=== PATIENT | female | born 1995 | race Caucasian/White ===

== ENCOUNTER 2018-03-18 12:44 | Emergency (ER) | payer MEDICAID, OTHER ==
[~2018-03-18] VITALS: Ht 154.9 cm; Wt 83.5 kg
--- OUTSIDE RECORDS SUMMARY | 2018-03-18 13:17 | XMS REPORT ---
Author Author Tran Mccarthy Organization [facility] Address [address] [place], [place] [id number] Care Team Providers Care Sawmill Equipment Operator Name Role Phone Tran Mccarthy PCP Unavailable Allergies and Adverse Reactions Name Reaction Notes PENICILLINS rash Plan of Treatment Not available. Medications Active Name Start Date Estimated Completion Date SIG Comments naproxen 500 mg oral tablet 06/28/2017 take 1 tablet (500 mg) by oral route 2 times per day with food for 30 days cyclobenzaprine 10 mg oral tablet 06/28/2017 take 1 tablet by oral route once a day (at bedtime) for 7 days Discontinued Name Start Date Discontinued Date SIG Comments diclofenac sodium 75 mg oral tablet,delayed release (DR/EC) 06/25/20172016 take 1 tablet (75 mg) by oral route 2 times per day for 10 days Problem List Not available. Vital Signs Date Time BP-Sys(mm[Hg] BP-Kathleen(mm[Hg]) HR(bpm) RR(rpm) Temp WT HT HC BMI BSA BMI Percentile O2 Sat(%) 07/02/2017 1:02:00 PM 115 mmHg 71 mmHg 90 bpm 16 rpm 99.6 F 166 lbs 61 in 31.37 kg/m2 1.80 m2 100 % 06/28/2017 2:25:00 PM 121 mmHg 70 mmHg 87 bpm 18 rpm 98.6 F 164.125 lbs 61 in 31.0108 kg/m 1.79 m 100 % 06/25/2017 1:49:00 PM 116 mmHg 80 mmHg 78 bpm 18 rpm 98.7 F 168 lbs 61 in 31.74 kg/m2 1.81 m2 100 % Social History Name Description Comments Tobacco Never smoker Alcohol Never History of Procedures Date Ordered Description Order Status 06/28/2017 12:00 AM Toradol 60 Mg Injection Reviewed 06/25/2017 12:00 AM RADEX HAND MINIMUM 3 VIEWS Reviewed 06/25/2017 12:[address] HEAD/BRAIN W/O DYE Reviewed Results Summary Not available. History Of Immunizations Not available. History of Past Illness Name Date of Onset Comments Headache Jun 25 2017 1:53PM Head trauma, initial encounter Jun 25 2017 1:53PM Hand injury, right, initial encounter Jun 25 2017 1:53PM Pain in right hand Jun 25 2017 1:53PM Intractable acute post-traumatic headache Jun 28 2017 2:27PM Payers Insurance Name Company Name Plan Name Plan Number Policy Number Policy Group Number Start Date [facility] [id number] N/A History of Encounters Visit Date Visit Type Provider 07/02/2017 Office visit Tran Mccarthy APRN 06/28/2017 Office visit Sherrill Her GROUNDS RESTORATION SPECIALIST 06/25/2017 Office visit Tran Mccarthy GROUNDS RESTORATION SPECIALIST
--- OUTSIDE RECORDS SUMMARY | 2018-03-18 13:17 | XMS REPORT ---
Author Author Basim Starks [facility] Address [address] [place], [place] [phone] Care Team Providers Care Lifestyle Consultant Name Role Phone Basim Starks PCP Allergies and Adverse Reactions Name Reaction Notes PENICILLINS rash Plan of Treatment Planned Activity Comments Planned Date Planned Time Plan/Goal Chlamydia 12/28/2017 12:00 AM Medications Active Name Start Date Estimated Completion Date SIG Comments Vitamin oral Discontinued Name Start Date Discontinued Date SIG Comments diclofenac sodium 75 mg oral tablet,delayed release (DR/EC) 06/25/20172016 take 1 tablet (75 mg) by oral route 2 times per day for 10 days naproxen 500 mg oral tablet 06/28/2017 12/28/2017 take 1 tablet (500 mg) by oral route 2 times per day with food for 30 days cyclobenzaprine 10 mg oral tablet 06/28/2017 12/28/2017 take 1 tablet by oral route once a day (at bedtime) for 7 days Problem List Not available. Vital Signs Date Time BP-Sys(mm[Hg] BP-Kathleen(mm[Hg]) HR(bpm) RR(rpm) Temp WT HT HC BMI BSA BMI Percentile O2 Sat(%) 12/28/2017 4:07:00 PM 125 mmHg 65 mmHg 60 bpm 99.6 F 185 lbs 61 in 34.96 kg/m2 1.90 m2 07/28/2017 9:40:00 AM 116 mmHg 80 mmHg 78 bpm 14 rpm 97.9 F 169.5 lbs 61 in 32.0264 kg/m 1.8191 m 100 % 07/02/2017 1:02:00 PM 115 mmHg 71 mmHg [...] 12:[address] HEAD/BRAIN W/O DYE Reviewed 12/28/2017 4:47 PM URINE TEST Reviewed 12/28/2017 12:00 AM CYTOPATH C/V THIN LAYER Returned 12/28/2017 12:00 AM N.GONORRHOEAE DNA AMP PROB Returned 12/28/2017 12:00 AM HIV-1ANTIBODY Returned 12/28/2017 12:00 AM URINALYSIS AUTO W/SCOPE Returned 12/28/2017 12:00 AM OBSTETRIC PANEL Returned 12/28/2017 12:00 AM ASSAY OF FERRITIN Returned 12/28/2017 12:00 AM URINE DRUG SCREEN RAPID Returned 12/28/2017 12:00 AM GLUCOSE TEST Returned 12/28/2017 12:00 AM DETECT AGENT NOS DNA AMP Returned 12/28/2017 12:00 AM TRICHOMONAS VAGINALIS AMPLIF Returned 12/28/2017 12:00 AM HEPATITIS C AB TEST Returned 01/04/2018 4:09 PM US PREG UTERUS REAL TIME W/IMAGE DCMTN TRANSVAG Reviewed Results Summary Date and Description Results 12/28/2017 4:47 PM Test, Urine positive History Of Immunizations Not available. History of Past Illness Name Date of Onset Comments Anxiety Headache Jun 25 2017 1:53PM Head trauma, initial encounter Jun 25 2017 1:53PM Hand injury, right, initial encounter Jun 25 2017 1:53PM Pain in right hand Jun 25 2017 1:53PM Intractable acute post-traumatic headache Jun 28 2017 2:27PM Intractable acute post-traumatic headache Jul 02 2017 1:07PM Concussion Jul 02 2017 1:07PM Unspecified injury of right wrist, hand and finger(s), subsequent encounter Jul 02 2017 1:07PM Encounter for occupational health examination Jul 28 2017 9:42AM test confirmed positive Dec 28 2017 4:14PM Obesity Dec 28 2017 4:14PM Payers Insurance Name Company Name Plan Name Plan Number Policy Number Policy Group Number Start Date [facility] [id number] N/A [employer] [id number] N/A [facility] Occupational Medicine [id number] N/A History of Encounters Visit Date Visit Type Provider 01/04/2018 Office visit Basim Starks MD 12/28/2017 Office visit Teresa Cuellar DROP FORGER 07/28/2017 Office visit Sherrill Her APRN 07/02/2017 Office visit Tran Mccarthy APRN 06/28/2017 Office visit Sherrill Her APRN 06/25/2017 Office visit Tran Mccarthy DROP FORGER
--- OUTSIDE RECORDS SUMMARY | 2018-03-18 13:17 | XMS REPORT ---
Author Author Sherrill Her Organization [facility] Address [address] [place], [place] [phone] Care Team Providers Care Mold Maker Helper Name Role Phone Sherrill Her PCP Unavailable Allergies and Adverse Reactions Name [...] HC BMI BSA BMI Percentile O2 Sat(%) 06/28/2017 2:25:00 PM 121 mmHg 70 mmHg 87 bpm 18 rpm 98.6 F 164.125 lbs 61 in 31.01 kg/m2 1.79 m2 100 % 06/25/2017 1:49:00 PM 116 mmHg 80 mmHg 78 bpm 18 rpm 98.7 F 168 lbs 61 in 31.743 kg/m 1.811 m 100 % Social History Name Description Comments Tobacco Never smoker Alcohol Never History of Procedures Date Ordered Description Order Status 06/25/2017 12:00 AM RADEX HAND MINIMUM 3 VIEWS Reviewed 06/25/2017 12:[address] HEAD/BRAIN W/O DYE Reviewed 06/28/2017 12:00 AM Toradol 60 Mg Injection Reviewed Results Summary Not available. History Of [...] Policy Number Policy Group Number Start Date [employer] [place] [facility] [id number] N/A History of Encounters Visit Date Visit Type Provider 06/28/2017 Office visit Sherrill Her APRN 06/25/2017 Office visit Tran Mccarthy [employer]
--- OUTSIDE RECORDS SUMMARY | 2018-03-18 13:17 | XMS REPORT ---
Author Author Basim Starks [facility] Address [address] [place], [place] [phone] Care Team Providers Care Pigment Supplier Name Role Phone Basim Starks PCP Allergies [...] HC BMI BSA BMI Percentile O2 Sat(%) 02/10/2018 9:50:00 AM 128 mmHg 78 mmHg 90 bpm 98.6 F 186 lbs 61 in 35.144 kg/m 1.9056 m 12/28/2017 4:07:00 PM 125 mmHg 65 mmHg 60 bpm 99.6 F 185 lbs 61 in 34.96 kg/m2 1.90 m2 07/28/2017 9:40:00 AM 116 mmHg 80 mmHg 78 bpm 14 rpm 97.9 F 169.5 lbs 61 in 32.03 kg/m2 1.82 m2 100 % 07/02/2017 1:02:00 PM 115 mmHg 71 mmHg 90 bpm 16 rpm 99.6 F 166 lbs 61 in 31.3651 kg/m 1.8002 m 100 % 06/28/2017 2:25:00 PM 121 mmHg [...] 12/28/2017 12:00 AM CYTOPATH C/V THIN LAYER Reviewed 12/28/2017 12:00 AM SPECIMEN HANDLING OFFICE-LAB Reviewed 12/28/2017 12:00 AM N.GONORRHOEAE DNA AMP PROB Reviewed 12/28/2017 12:00 AM CHLAMYDIA CULTURE Reviewed 12/28/2017 12:00 AM HIV-1ANTIBODY Reviewed 12/28/2017 12:00 AM URINALYSIS AUTO W/SCOPE Reviewed 12/28/2017 12:00 AM OBSTETRIC PANEL Returned 12/28/2017 12:00 AM ASSAY OF FERRITIN Reviewed 12/28/2017 12:00 AM URINE DRUG SCREEN RAPID Reviewed 12/28/2017 12:00 AM GLUCOSE TEST Reviewed 12/28/2017 12:00 AM DETECT AGENT NOS DNA AMP Reviewed 12/28/2017 12:00 AM TRICHOMONAS VAGINALIS AMPLIF Reviewed 12/28/2017 12:00 AM HEPATITIS C AB TEST Reviewed 01/04/2018 12:00 AM US PREG UTERUS REAL TIME W/IMAGE DCMTN TRANSVAG Reviewed Results Summary Date and Description Results 12/28/2017 4:40 PM Pap Smear Collected 12/28/2017 4:47 PM Test, Urine positive 12/29/2017 2:20 PM COLOR YELLOW APPEARANCE CLEAR SPEC GRAV >=1.030 pH 5.5 PROTEIN NEGATIVE GLUCOSE 100 KETONE NEGATIVE BILIRUBIN NEGATIVE BLOOD NEGATIVE NITRITE NEGATIVE LEUK SCREEN NEGATIVE WBC/HPF 0-5 RBC/HPF NEGATIVE CASTS/LPF NEGATIVE /LPFCRYSTALS NEGATIVE MUCOUS THRDS 2++ BACTERIA 1+ EPITH CELLS 1+ SQUAMOUS /HPFTRICHOMONAS NEGATIVE YEAST NEGATIVE CULT ORDERED YES FERRITIN 11.0 ng/mLCannabinoids (THC) NEGATIVE ng/mLPhencyclidine (PCP) NEGATIVE ug/mLCocaine NEGATIVE Methamphetamine NEGATIVE ug/mLOpiates NEGATIVE ng/mLAmphetamine NEGATIVE Benzodiazepines NEGATIVE ng/mLTricyclic Antidepres NEGATIVE Methadone NEGATIVE ng/mLBarbiturates NEGATIVE ng/mLOxycodone NEGATIVE Propoxyphene (PPX) NEGATIVE ng/mLHEPATITIS C 0.07 HIV AG/AB COMBO 0.08 History Of Immunizations Not available. History of [...] 2017 4:14PM Obesity Dec 28 2017 4:14PM Encounter for care of first , first trimester Jan 04 2018 4 :09PM Encounter for examination following surgery Feb 10 2018 9:52AM Payers Insurance Name Company Name Plan Name Plan Number Policy Number Policy Group Number Start Date [facility] [id number] N/A [employer] [id number] N/A [facility] Med Occupational Medicine [id number] N/A [facility] [id number] N/A History of Encounters Visit Date Visit Type Provider 02/10/2018 Surgery Basim Starks MD 02/02/[address] Bridget Phillips MD 02/01/[address] Bridget Phillips MD 01/04/2018 Office visit Basim Starks MD 12/28/2017 Office visit Teresa Cuellar COMPLIANCE AUDITOR 07/28/2017 Office visit Sherrill Her COMPLIANCE AUDITOR 07/02/2017 Office visit Tran Mccarthy COMPLIANCE AUDITOR 06/28/2017 Office visit Sherrill Her COMPLIANCE AUDITOR 06/25/2017 Office visit Tran Mccarthy COMPLIANCE AUDITOR
--- OUTSIDE RECORDS SUMMARY | 2018-03-18 13:18 | XMS REPORT ---
Author Author Basim Starks [facility] Address [address] [place], [place] [id number] Care Team Providers Care Transportation Mechanic Name Role Phone Basim Starks PCP Allergies [...] W/SCOPE Reviewed 12/28/2017 12:00 AM OBSTETRIC PANEL Reviewed 12/28/2017 12:00 AM ASSAY OF FERRITIN Reviewed 12/28/2017 12:00 AM URINE DRUG SCREEN RAPID Reviewed 12/28/2017 12:00 AM GLUCOSE TEST Reviewed 12/28/2017 12:00 AM DETECT AGENT NOS DNA AMP Reviewed 12/28/2017 12:00 AM TRICHOMONAS VAGINALIS AMPLIF Reviewed 12/28/2017 12:00 AM HEPATITIS C AB TEST Reviewed 01/04/2018 12:00 AM US PREG UTERUS REAL TIME W/IMAGE DCMTN TRANSVAG Reviewed 02/15/2018 12:00 AM US EXAM PELVIC COMPLETE Returned 02/15/2018 12:00 AM TRANSVAGINAL US NON-OB Returned Results Summary Date and Description Results 12/28/2017 4:40 PM Pap Smear Collected 12/28/2017 4:47 PM Test, Urine positive 12/29/2017 2:20 PM WBC 9.8 RBC 4.92 HGB 12.90 g/dLHCT 39.80 %MCV 81.0 fLMCH 26.20 pgMCHC 32.40 g/dLRDW SD 47 RDW CV 15.90 %MPV 12.50 fLPLT 253 NRBC# 0.00 NRBC% 0.0 %NEUT 62.50 %%LYMP 30.90 %%MONO 4.90 %%EOS 1.10 %%BASO 0.30 %#NEUT 6.11 #LYMP 3.03 #MONO 0.48 #EOS 0.11 #BASO 0.03 MANUAL DIFF NOT IND COLOR YELLOW APPEARANCE CLEAR SPEC GRAV >=1.030 [...] Benzodiazepines NEGATIVE ng/mLTricyclic Antidepres NEGATIVE Methadone NEGATIVE ng/ mLBarbiturates NEGATIVE ng/mLOxycodone NEGATIVE Propoxyphene (PPX) NEGATIVE ng/ mLHEPATITIS C 0.07 RPR Non Reactive HBsAg Screen Negative HIV AG/AB COMBO 0.08 History Of Immunizations [...] examination following surgery Feb 10 2018 9:52AM Fibroid uterus Feb 10 2018 11:02AM Payers Insurance Name Company Name Plan Name Plan Number Policy Number Policy Group Number Start Date [facility] [id number] N/A [employer] [employer] [facility] [id number] N/A [facility] Occupational Medicine [id number] N/A [facility] [id number] N/A History of Encounters Visit Date Visit Type Provider 03/03/2018 Office visit Basim Starks MD 02/10/2018 Surgery Basim Starks MD 02/02/[address] Bridget Phillips MD 02/01/[address] Bridget Phillips MD 01/04/2018 Office visit Basim Starks MD 12/28/2017 Office visit Teresa Cuellar HUMAN RESOURCES ASSISTANT MANAGER 07/28/2017 Office visit Sherrill Her HUMAN RESOURCES ASSISTANT MANAGER 07/02/2017 Office visit Tran Mccarthy HUMAN RESOURCES ASSISTANT MANAGER 06/28/2017 Office visit Sherrill Her APRN 06/25/2017 Office visit Tran Mccarthy HUMAN RESOURCES ASSISTANT MANAGER
--- OUTSIDE RECORDS SUMMARY | 2018-03-18 13:18 | XMS REPORT ---
Author Author Bridget Phillips [facility] Address [address] [place], [place] [address] Care Team Providers Care Trial Justice Name Role Phone Bridget Phillips PCP Allergies and Adverse Reactions Name Reaction [...] bpm 99.6 F 185 lbs 61 in 34.9551 kg/m 1.9004 m 07/28/2017 9:40:00 AM 116 mmHg 80 mmHg [...] first trimester Jan 04 2018 4 :09PM Payers Insurance Name Company Name Plan Name Plan Number Policy Number Policy Group Number Start Date [facility] [id number] N/A [employer] [id number] N/A [facility] Med Occupational Medicine [id number] N/A History of Encounters Visit Date Visit Type Provider 02/01/[address] Bridget Phillips MD 01/04/2018 Office visit Basim Starks MD 12/28/2017 Office visit Teresa Cuellar LABORER PIE BAKERY 07/28/2017 Office visit Sherrill Her LABORER PIE BAKERY 07/02/2017 Office visit Tran Mccarthy LABORER PIE BAKERY 06/28/2017 Office visit Sherrill Her LABORER PIE BAKERY 06/25/2017 Office visit Tran Mccarthy APRN
--- OUTSIDE RECORDS SUMMARY | 2018-03-18 13:18 | XMS REPORT ---
Author Author Basim Starks [facility] Address [address] [place], [place] [address] Care Team Providers Care Construction Equipment Overhauler Name Role Phone Basim Starks PCP Allergies and Adverse Reactions Name Reaction Notes PENICILLINS rash Plan of Treatment Planned Activity Comments Planned Date Planned Time Plan/Goal Transabdominal / Transvaginal US (non-OB) 02/15/2018 12:00 AM Transabdominal / Transvaginal US (non-OB) 02/15/2018 12:00 AM Medications Active Name Start Date [...] Policy Number Policy Group Number Start Date [facility] [id number] N/A [employer] [id number] N/A [facility] Med Occupational Medicine [id number] N/A [facility] [id number] N/A History of Encounters Visit Date Visit Type Provider 02/10/2018 Surgery Basim Starks MD 02/02/[address] Bridget Phillips MD 02/01/[address] Bridget Phillips MD 01/04/2018 Office visit Basim Starks MD 12/28/2017 Office visit Teresa Cuellar APRN 07/28/2017 Office visit Sherrill Her APRN 07/02/2017 Office visit Tran Mccarthy APRN 06/28/2017 Office visit Sherrill Her APRN 06/25/2017 Office visit Tran Mccarthy APRN
--- OUTSIDE RECORDS SUMMARY | 2018-03-18 13:18 | XMS REPORT ---
Author Author Basim Starks [facility] Address [address] [place], [place] [address] Care Team Providers Care Fur Cutting Machine Operator Name Role Phone Basim Starks PCP Allergies [...] Policy Number Policy Group Number Start Date [facility] [id number] N/A [employer] [id number] N/A [facility] Occupational Medicine [id number] N/A History of Encounters Visit Date Visit Type Provider 01/04/2018 Office visit Basim Starks MD 12/28/2017 Office visit Teresa Cuellar RUFFLING HEMMER AUTOMATIC 07/28/2017 Office visit Sherrill Her APRN 07/02/2017 Office visit Tran Mccarthy APRN 06/28/2017 Office visit Sherrill Her APRN 06/25/2017 Office visit Tran Mccarthy RUFFLING HEMMER AUTOMATIC
--- OUTSIDE RECORDS SUMMARY | 2018-03-18 13:19 | XMS REPORT ---
Author Author Bridget Phillips [facility] Address [address] [place], [place] [address] Care Team Providers Care Hand Stonecutter Name Role Phone Bridget Phillips PCP Allergies [...] Policy Number Policy Group Number Start Date [facility] [id number] N/A [employer] [id number] N/A [facility] Med Occupational Medicine [id number] N/A History of Encounters Visit Date Visit Type Provider 02/01/[address] Bridget Phillips MD 01/04/2018 Office visit Basim Starks MD 12/28/2017 Office visit Teresa Cuellar PARK LANDSCAPE ARCHITECT 07/28/2017 Office visit Sherrill Her PARK LANDSCAPE ARCHITECT 07/02/2017 Office visit Tran Mccarthy PARK LANDSCAPE ARCHITECT 06/28/2017 Office visit Sherrill Her PARK LANDSCAPE ARCHITECT 06/25/2017 Office visit Tran Mccarthy APRN
--- OUTSIDE RECORDS SUMMARY | 2018-03-18 13:19 | XMS REPORT ---
Author Author Basim Starks [facility] Address [address] [place], [place] [address] Care Team Providers Care Switch Foreman Name Role Phone Basim Starks PCP Allergies and Adverse Reactions Name Reaction Notes PENICILLINS rash Plan of Treatment Planned Activity Comments Planned Date Planned Time Plan/Goal Ultrasound, OB complete >14 weeks 03/31/2018 12:00 AM Medications Active Name Start Date [...] 02/15/2018 12:00 AM US EXAM PELVIC COMPLETE Reviewed 02/15/2018 12:00 AM TRANSVAGINAL US NON-OB Reviewed Results Summary Date and Description Results [...] 9:52AM Fibroid uterus Feb 10 2018 11:02AM Normal in multigravida in second trimester Mar 03 2018 4:21PM Payers Insurance Name Company Name Plan Name Plan Number Policy Number Policy Group Number Start Date [facility] [id number] N/A [employer] [id number] N/A [facility] Occupational Medicine [id number] N/A [facility] [address] [facility] [id number] N/A History of Encounters Visit Date Visit [...]
--- OUTSIDE RECORDS SUMMARY | 2018-03-18 13:19 | XMS REPORT ---
Author Author Bridget Phillips [facility] Address [address] [place], [place] [address] Care Team Providers Care Commercial Green Building Architect Name Role Phone Bridget Phillips PCP Allergies and Adverse Reactions Name Reaction Notes PENICILLINS rash Plan of Treatment Planned Activity Comments Planned Date Planned Time Plan/Goal Transabdominal / Transvaginal US (non-OB) 02/02/2018 12:00 AM Transabdominal / Transvaginal US (non-OB) 02/02/2018 12:00 AM Medications Active Name Start Date [...] Policy Number Policy Group Number Start Date [facility] [id number] N/A [employer] [id number] N/A [facility] Med Occupational Medicine [id number] N/A History of Encounters Visit Date Visit Type Provider 02/01/[address] Bridget Phillips MD 01/04/2018 Office visit Basim Starks MD 12/28/2017 Office visit Teresa Cuellar DAY CARE AIDE 07/28/2017 Office visit Sherrill Her DAY CARE AIDE 07/02/2017 Office visit Tran Mccartyh DAY CARE AIDE 06/28/2017 Office visit Sherrill Her DAY CARE AIDE 06/25/2017 Office visit Tran Mccarthy DAY CARE AIDE
--- OUTSIDE RECORDS SUMMARY | 2018-03-18 13:20 | XMS REPORT ---
Author Author Bridget Phillips [facility] Address [address] [place], [place] [address] Care Team Providers Care Patient Registration Manager Name Role Phone Bridget Phillips PCP Allergies [...] Jan 04 2018 4 :09PM Encounter for supervision of normal in multigravida in first trimester Feb 01 2018 5:08PM Pelvic pain Feb 01 2018 5:08PM Payers Insurance Name Company Name Plan Name Plan Number Policy Number Policy Group Number Start Date [facility] [id number] N/A [employer] [id number] N/A [facility] Med Occupational Medicine [id number] N/A History of Encounters Visit Date Visit Type Provider 02/01/[address] Bridget Phillips MD 01/04/2018 Office visit Basim Starks MD 12/28/2017 Office visit Teresa Cuellar SMOKING PIPE MOUNTER 07/28/2017 Office visit Sherrill Her SMOKING PIPE MOUNTER 07/02/2017 Office visit Tran Mccarthy SMOKING PIPE MOUNTER 06/28/2017 Office visit Sherrill Her APRN 06/25/2017 Office visit Tran Mccarthy SMOKING PIPE MOUNTER
--- OUTSIDE RECORDS SUMMARY | 2018-03-18 13:20 | XMS REPORT ---
Author Author Tran Mccarthy Organization [facility] Address [address] [place], [place] [address] Care Team Providers Care Retail Associate Name Role Phone Tran Mccarthy PCP Unavailable Allergies and Adverse Reactions Name Reaction Notes PENICILLINS rash Plan of Treatment Not available. Medications Not available. Problem List Not available. Vital Signs Date Time BP-Sys(mm[Hg] BP-Kathleen(mm[Hg]) HR(bpm) RR(rpm) Temp WT HT HC BMI BSA BMI Percentile O2 Sat(%) 06/25/2017 1:49:00 PM 116 mmHg 80 mmHg 78 bpm 18 rpm 98.7 F 168 lbs 61 in 31.74 kg/m2 1.81 m2 100 % Social History Name Description Comments Tobacco Never smoker Alcohol Never History of Procedures Not available. Results Summary Not available. History Of Immunizations Not available. History of Past Illness Not available. Payers Insurance Name Company Name Plan Name Plan Number Policy Number Policy Group Number Start Date [employer] [id number] N/A History of Encounters Visit Date Visit Type Provider 06/25/2017 Office visit Tran Mccarthy APRN
--- OUTSIDE RECORDS SUMMARY | 2018-03-18 13:20 | XMS REPORT ---
Author Author Sherrill Her Organization [facility] Address [address] [place], [place] [address] Care Team Providers Care Drug Safety Associate Name Role Phone Sherrill Her PCP Unavailable [...] HC BMI BSA BMI Percentile O2 Sat(%) 07/28/2017 9:40:00 AM 116 mmHg 80 mmHg [...] occupational health examination Jul 28 2017 9:42AM Payers Insurance Name Company Name Plan Name Plan Number Policy Number Policy Group Number Start Date [place] [employer] [facility] [employer] [place] [employer] [id number] N/A [facility] Occupational Medicine [id number] N/A History of Encounters Visit Date Visit Type Provider 07/28/2017 Office visit Sherrill Her APRN 07/02/2017 Office visit Tran Mccarthy APRN 06/28/2017 Office visit Sherrill Her APRN 06/25/2017 Office visit Tran Mccarthy APRN
--- OUTSIDE RECORDS SUMMARY | 2018-03-18 13:20 | XMS REPORT ---
Author Author Basim Starks [facility] Address [address] [place], [place] [address] Care Team Providers Care Stacker Tender Name Role Phone Basim Starks PCP Allergies [...] Policy Number Policy Group Number Start Date [facility] [id number] N/A [employer] [id number] N/A [facility] Occupational Medicine [id number] N/A [facility] [id number] N/A History of Encounters Visit Date Visit [...]
--- OUTSIDE RECORDS SUMMARY | 2018-03-18 13:20 | XMS REPORT ---
Author Author Teresa Cuellar [facility] Address [address] [place], [place] [id number] Care Team Providers Care Molding Technician Name Role Phone Teresa Cuellar PCP Allergies and Adverse Reactions Name Reaction Notes PENICILLINS rash Plan of Treatment Planned Activity Comments Planned Date Planned Time Plan/Goal *Thin layer pap with reflex to HPV ; cervical/vaginal (ThinPrep or Surepath) 12/28/2017 12:00 AM Gonorrhea 12/28/2017 12:00 AM Chlamydia 12/28/2017 12:00 AM HIV-1 antibody 12/28/2017 12:00 AM FERRITIN 12/28/2017 12:00 AM URINE DRUG SCREEN RAPID 12/28/2017 12:00 AM GLUCOSE GESTATIONAL SCREEN 12/28/2017 12:00 AM TRICHOMONAS AMPLIFIED 12/28/2017 12:00 AM TRICHOMONAS AMPLIFIED 12/28/2017 12:00 AM HEPATITIS C AB 12/28/2017 12:00 AM Medications Active Name Start [...] PM URINE TEST Reviewed 12/28/2017 12:00 AM URINALYSIS AUTO W/SCOPE Returned 12/28/2017 12:00 AM OBSTETRIC PANEL Returned Results Summary Date and Description Results [...] Policy Number Policy Group Number Start Date [facility] [id number] N/A [facility] [employer] [id number] N/A [facility] Occupational Medicine [id number] N/A History of Encounters Visit Date Visit Type Provider 12/28/2017 Office visit Teresa Cuellar SCIENTIFIC MANAGER 07/28/2017 Office visit Sherrill Her SCIENTIFIC MANAGER 07/02/2017 Office visit Tran Mccarthy SCIENTIFIC MANAGER 06/28/2017 Office visit Sherrill Her SCIENTIFIC MANAGER 06/25/2017 Office visit Tran Mccarthy SCIENTIFIC MANAGER
--- OUTSIDE RECORDS SUMMARY | 2018-03-18 13:21 | XMS REPORT ---
Author Author Basim Starks [facility] Address [address] [place], [place] [id number] Care Team Providers Care As400 Consultant Name Role Phone Basim Starks PCP [...] AM HEPATITIS C AB TEST Returned 01/04/2018 12:00 AM US PREG UTERUS REAL [...] Policy Number Policy Group Number Start Date [facility] [id number] N/A [employer] [facility] [id number] N/A [facility] Occupational Medicine [id number] N/A History of Encounters Visit Date Visit Type Provider 01/04/2018 Office visit Basim Starks MD 12/28/2017 Office visit Teresa Cuellar ALLOPATHIC DOCTOR 07/28/2017 Office visit Sherrill Her ALLOPATHIC DOCTOR 07/02/2017 Office visit Tran Mccarthy ALLOPATHIC DOCTOR 06/28/2017 Office visit Sherrill Her APRN 06/25/2017 Office visit Tran Mccarthy ALLOPATHIC DOCTOR
--- OUTSIDE RECORDS SUMMARY | 2018-03-18 13:21 | XMS REPORT ---
Author Author Tran Mccarthy Organization [facility] Address [address] [place], [place] [id number] Care Team Providers Care Regulatory Affairs Coordinator Name Role Phone Tran Mccarthy PCP Unavailable [...] finger(s), subsequent encounter Jul 02 2017 1:07PM Payers Insurance Name Company Name Plan Name Plan Number Policy Number Policy Group Number Start Date [employer] [facility] [employer] [facility] [id number] N/A History of Encounters Visit Date Visit Type Provider 07/02/2017 Office visit Tran Mccarthy APRN 06/28/2017 Office visit Sherrill Her APRN 06/25/2017 Office visit Tran Mccarthy ENTERPRISE CLOUD ARCHITECT
--- OUTSIDE RECORDS SUMMARY | 2018-03-18 13:21 | XMS REPORT ---
Author Author Basim Starks [facility] Address [address] [place], [place] [id number] Care Team Providers Care Banking Paralegal Name Role Phone Basim Starks PCP Allergies [...] Policy Number Policy Group Number Start Date [facility] [id number] N/A [employer] [facility] [employer] [facility] [id number] N/A [facility] Med Occupational Medicine [id number] N/A [facility] [id number] N/A History of Encounters Visit Date Visit [...]
--- OUTSIDE RECORDS SUMMARY | 2018-03-18 13:21 | XMS REPORT ---
Author Author Basim Starks [facility] Address [address] [place], [place] [address] Care Team Providers Care General Farmer Name Role Phone Basim Starks PCP Allergies [...] Policy Number Policy Group Number Start Date [facility] [id number] N/A [employer] [facility] [employer] [facility] [id number] N/A [facility] Occupational Medicine [id number] N/A [facility] [id number] N/A History of Encounters Visit Date Visit [...]
--- OUTSIDE RECORDS SUMMARY | 2018-03-18 13:21 | XMS REPORT ---
Author Author Sherrill Her Organization [facility] Address [address] [place], [place] [address] Care Team Providers Care Surface Miner Name Role Phone Sherrill Her PCP Unavailable [...] Policy Number Policy Group Number Start Date [facility] [id number] N/A [facility] Occupational Medicine [id number] N/A History of Encounters Visit Date Visit Type Provider 07/28/2017 Office visit Sherrill Her APRN 07/02/2017 Office visit Tran Mccarthy APRN 06/28/2017 Office visit Sherrill Her APRN 06/25/2017 Office visit Tran Mccarthy APRN
--- OUTSIDE RECORDS SUMMARY | 2018-03-18 13:22 | XMS REPORT | Continuity of Care Document ---
Author Author [facility] Organization [facility] Address Unknown Phone Unavailable Allergies Active Description Code Type Severity Reaction Onset Reported/Identified Relationship to Patient Clinical Status Yes PENICILLIN [id number] BRANDNAME N /A N/A Medications There is no data. Problems There is no data. Procedures There is no data. Results Test Result Range Measles/Mumps/Rubella Immunity - 07/28/17 10:40 Rubella Antibodies, IgG 1.52 index Immune >0.99 Rubeola Ab, IgG <25.0 AU/mL Immune >29.9 Mumps Abs, IgG 12.0 AU/mL Immune >10.9 Varicella-Zoster V Ab, IgG - 07/28/17 10:40 Varicella Zoster IgG <135 index Immune >165 HBsAg Screen - 12/29/17 14:20 HBsAg Screen Negative Negative RPR, Rfx Qn RPR/Confirm TP - 12/29/17 14:20 RPR Non Reactive Non Reactive Rubella Antibodies, IgG - 12/29/17 14:20 Rubella Antibodies, IgG 4.12 index Immune >0.99 Encounters ACCT No. Visit Date/Time Discharge Status Pt. Type Provider Facility Loc./Unit Complaint [id number] 02/10/2018 10:48:20 02/10/2018 23:59:59 CLS Outpatient Basim Starks [id number] 02/03/2018 13:04:00 02/03/2018 23:59:59 CLS Outpatient Bridget Phillips [id number] 02/01/2018 17:03:36 02/01/2018 23:59:59 CLS Outpatient Bridget Phillips [id number] 01/04/2018 16:49:40 01/04/2018 23:59:59 CLS Outpatient Basim Starks [id number] 12/29/2017 13:15:14 12/29/2017 23:59:59 CLS Outpatient Teresa Cuellar [id number] 07/28/2017 10:33:31 07/28/2017 23:59:59 CLS Outpatient Sherrill Her [id number] 07/02/2017 13:59:43 07/02/2017 23:59:59 CLS Outpatient Tran Mccarthy [id number] 06/28/2017 15:06:46 06/28/2017 23:59:59 CLS Outpatient Sherrill Her [id number] 06/25/2017 14:43:06 06/25/2017 23:59:59 CLS Outpatient Tran Mccarthy [id number] 12/30/2017 11:06:00 Document Registration [id number] 03/03/2018 16:19:13 Document Registration [id number] 02/10/2018 10:35:20 Document Registration [id number] 02/02/2018 14:13:05 Document Registration [id number] 02/02/2018 12:57:06 Document Registration [id number] 07/29/2017 17:07:00 Document Registration [id number] 12/30/2017 08:13:00 Document Registration [id number] 11/03/2017 15:00:00 11/03/2017 23:59:59 CLS Outpatient SHAHLA LOYA LAC [id number] 07/29/2017 17:07:00 Document Registration [id number] 12/30/2017 17:06:00 Document Registration
[2018-03-18 13:37] LABS: BILIRUBIN,URINE NEGATIVE (NEGATIVE); CLARITY,URINE CLEAR; COLOR,URINE YELLOW; GLUCOSE, URINE (UA) NEGATIVE (NEGATIVE); KETONES,URINE NEGATIVE (NEGATIVE); LEUKOCYTE ESTERASE ,URINE 1+ (NEGATIVE); NITRITE,URINE NEGATIVE (NEGATIVE); PH,URINE 7 (5-9); PROTEIN,URINE NEGATIVE (NEGATIVE); UROBILINOGEN,URINE NORMAL (NORMAL)
[2018-03-18 13:51] LABS: BACTERIA,URINE NEGATIVE /HPF; SQUAMOUS EPITHELIAL CELL,UR 25-50 /HPF
[2018-03-18 13:52] LABS: BASOPHILS % (AUTO) 0 % (0-10); EOSINOPHILS # (AUTO) 0.1 10^3/uL (0.0-0.3); EOSINOPHILS % (AUTO) 1 % (0-10); HEMATOCRIT 35 % (35-52); HEMOGLOBIN 11.8 G/DL (11.5-16.0); LYMPHOCYTES # (AUTO) 2.8 X 10^3 (1.0-4.0); LYMPHOCYTES % (AUTO) 27 % (12-44); MEAN CORPUSCULAR HEMOGLOBIN 27 PG (25-34); MEAN CORPUSCULAR HGB CONC 34 G/DL (32-36); MEAN CORPUSCULAR VOLUME 81 FL (80-99); MEAN PLATELET VOLUME 12.9 FL (7.4-10.4); MONOCYTES # (AUTO) 0.6 X 10^3 (0.0-1.0); MONOCYTES % (AUTO) 6 % (0-12); NEUTROPHILS # (AUTO) 6.9 X 10^3 (1.8-7.8); NEUTROPHILS % (AUTO) 66 % (42-75); PLATELET COUNT 214 10^3/uL (130-400); RED BLOOD COUNT 4.32 10^6/uL (4.35-5.85); RED CELL DISTRIBUTION WIDTH 14.7 % (10.0-14.5); WHITE BLOOD COUNT 10.5 10^3/uL (4.3-11.0)
[2018-03-18 14:11] LABS: ALANINE AMINOTRANSFERASE 9 U/L (0-55); ALBUMIN 3.6 GM/DL (3.2-4.5); ALKALINE PHOSPHATASE 45 U/L (40-136); BILIRUBIN,TOTAL 0.3 MG/DL (0.1-1.0); BUN/CREATININE RATIO 14; CALCIUM 8.9 MG/DL (8.5-10.1); CARBON DIOXIDE 21 MMOL/L (21-32); CHLORIDE 107 MMOL/L (98-107); CREATININE SERUM 0.57 MG/DL (0.60-1.30); GFR ESTIMATED > 60; GLUCOSE 79 MG/DL (70-105); POTASSIUM 3.9 MMOL/L (3.6-5.0); SODIUM 136 MMOL/L (135-145); TOTAL PROTEIN 6.4 GM/DL (6.4-8.2)
--- NOTE | 2018-03-18 14:39 | Diagnostic Imaging Report ---
INDICATION: Pelvic pain TECHNIQUE: Multiple real-time grayscale images were obtained over the gravid uterus. COMPARISON: None FINDINGS: There are no prior studies available for comparison. There is a single live fetus in transverse presentation. heart motion was noted at a rate of 143 BPM was recorded. There were no obvious abnormalities identified but a complete survey was not performed. The growth perimeters are fairly uniform. The placenta is anterior and there is no previa. The amniotic fluid volume is within normal limits. The cervix was identified measures 3.5 cm in length. IMPRESSION: 1. There is a single live fetus approximately 19 weeks 2 days gestation plus or -1.5 weeks. The EDC is 08/09/2018. 2. There were no obvious abnormalities identified. 3. The growth perimeters are fairly uniform. Biometrical measurements are as follows: Biparietal 4.29 cm, age 19 weeks 0 days. Head circumference 16.81 cm, age 19 weeks 4 days. Abdominal circumference 14.55 cm, age 20 weeks 0 days. Femur length 2.82 cm, age 18 weeks 5 days. Sonographic estimate age: 19 weeks 3 days. Sonographic estimated date of delivery: 08/09/18. Estimated Weight: 285 gm (+/- 42 gm). LMP percentile: NA%. heart rate: 143 beats per minute. number: 1 of 1. Dictated by: Dictated on workstation # [id number]
--- NOTE | 2018-03-18 15:11 | ED GU-Female ---
General Chief Complaint: -Female Stated Complaint: LEFT SIDE PAIN//18 WEEKS PG Nursing Triage Note: PATIENT STATES THAT SHE HAS BEEN HAVING LEFT SIDE PAIN X2 MONTHS. SHE SAW A DOCTOR IN [place] AND THEY TOLD HER SHE DIDN'T HAVE BLOOD FLOW TO HER LEFT OVARY, THEN THEY SAID SHE DID HAVE BLOOD FLOW BASED ON ULTRASOUND RESULTS. THEY THEY THOUGHT SHE HAD A TUMOR ON HER UTERUS BUT THEN THEY SAID IT WAS GONE. SHE STATES THE PAIN HAS BEEN OFF AND ON FOR 2 MONTHS AND STARTED BACK UP AGAIN YESTERDAY. SHE IS [address] THOMAS FOR HER OB. Nursing Sepsis Screen: No Definite Risk Source: patient Exam Limitations: no limitations History of Present Illness Date Seen by Provider: Mar 18, 2018 Time Seen by Provider: 15:06 Initial Comments This 22-year-old spontaneous Ab1 in her 18th week of gestation presents with left lower quadrant pain. The patient's pain began again yesterday. She had similar severe left lower quadrant pain 2 months ago for which she underwent extensive evaluation. Patient was evaluated at [place] and [facility] thought to have disruption of flow to the left ovary and a uterine fibroid. Subsequent imaging failed to demonstrate evidence of either blood flow impairment to the left ovary or of a fibroid. Patient is currently under the care of Dr. Garcia. The patient is O+. She has had no associated fever, dysuria, flank pain, vaginal discharge or dyspareunia. Patient describes the left lower quadrant pain is severe and quality and sharp in nature. The patient has had no other complaints. Allergies and Home Medications Allergies Coded Allergies: No Known Drug Allergies (Unverified , 03/18/18) Patient Home Medication List Home Medication List Reviewed: Yes Review of Systems Constitutional: No chills, No fever EENTM: No hearing loss Respiratory: No cough Cardiovascular: No chest pain Gastrointestinal: see HPI, abdominal pain; No diarrhea, No melena Genitourinary: denies burning, denies dysuria, denies frequency : Yes Musculoskeletal: no symptoms reported Skin: no symptoms reported Psychiatric/Neurological: No Symptoms Reported Endocrine: No Symptoms Reported Hematologic/Lymphatic: No Symptoms Reported Past Ocqrgqw-Oxlluu-Mgolua Hx Past Med/Social Hx: Reviewed Nursing Past Med/Soc Hx Patient Social History Alcohol Use: Denies Use Recreational Drug Use: No Smoking Status: Never a Smoker 2nd Hand Smoke Exposure: No Recent Foreign Travel: No Contact w/Someone Who Travel: No Recent Infectious Disease Expo: No Recent Hopitalizations: No Physical Abuse: No Sexual Abuse: No Seasonal Allergies Seasonal Allergies: No Past Medical History Surgeries: Yes (D&C, EXPLORATORY LAP) Respiratory: No Cardiac: No Neurological: No Genitourinary: No Gastrointestinal: No Musculoskeletal: No Endocrine: No HEENT: No Cancer: No Psychosocial: No Nursing Suicide Risk Score: 0 Blood Disorders: No Physical Exam Vital Signs Vital Signs - First Documented 03/18/18 12:52 Temp 98.0 Pulse 81 Resp 16 B/P (MAP) 111/69 (83) Pulse Ox 100 Capillary Refill : Less Than 3 Seconds General Appearance: WD/WN HEENT: normal ENT inspection Neck: full range of motion Cardiovascular: normal peripheral pulses, regular rate, rhythm Respiratory: chest non-tender, lungs clear Gastrointestinal: normal bowel sounds, other (patient's gravid uterus is consistent with her dates. The fundal height is at the umbilicus.) Back: normal inspection Extremities: normal range of motion Neurologic/Psychiatric: no motor/sensory deficits, alert, normal mood/affect Skin: normal color, warm/dry Progress/Results/Core Measures Suspected Sepsis Recent Fever Within 48 Hours: No Infection Criteria Present: None New/Unexplained Altered Menta: No Sepsis Screen: No Definite Risk SIRS Temperature:98.0 Pulse: 81 Respiratory Rate: 16 Laboratory Tests 03/18/18 13:45: White Blood Count 10.5 Blood Pressure 111 /69 Mean: 83 Laboratory Tests 03/18/18 13:45: Creatinine 0.57L, Platelet Count 214, Total Bilirubin 0.3 Results/Orders Lab Results Laboratory Tests Test 03/18/18 13:30 03/18/18 13:45 Range/Units Urine Color YELLOW Urine Clarity CLEAR Urine pH 7 5-9 Urine Specific [place] 1.010 L 1.016-1.022 Urine Protein NEGATIVE NEGATIVE Urine Glucose (UA) NEGATIVE NEGATIVE Urine Ketones NEGATIVE NEGATIVE Urine Nitrite NEGATIVE NEGATIVE Urine Bilirubin NEGATIVE NEGATIVE Urine Urobilinogen NORMAL NORMAL MG/DL Urine Leukocyte Esterase 1+ H NEGATIVE Urine RBC (Auto) NEGATIVE NEGATIVE Urine RBC NONE /HPF Urine WBC NONE /HPF Urine Squamous Epithelial Cells 25-50 H /HPF Urine Crystals NONE /LPF Urine Bacteria NEGATIVE /HPF Urine Casts NONE /LPF Urine Mucus LARGE H /LPF Urine Culture Indicated NO White Blood Count 10.5 4.3-11.0 10^3/uL Red Blood Count 4.32 L 4.35-5.85 10^6/uL Hemoglobin 11.8 11.5-16.0 G/DL Hematocrit 35 35-52 % Mean Corpuscular Volume 81 80-99 FL Mean Corpuscular Hemoglobin 27 25-34 PG Mean Corpuscular Hemoglobin Concent 34 32-36 G/DL Red Cell Distribution Width 14.7 H 10.0-14.5 % Platelet Count 214 130-400 10^3/uL Mean Platelet Volume 12.9 H 7.4-10.4 FL Neutrophils (%) (Auto) 66 42-75 % Lymphocytes (%) (Auto) 27 12-44 % Monocytes (%) (Auto) 6 0-12 % Eosinophils (%) (Auto) 1 0-10 % Basophils (%) (Auto) 0 0-10 % Neutrophils # (Auto) 6.9 1.8-7.8 X 10^3 Lymphocytes # (Auto) 2.8 1.0-4.0 X 10^3 Monocytes # (Auto) 0.6 0.0-1.0 X 10^3 Eosinophils # (Auto) 0.1 0.0-0.3 10^3/uL Basophils # (Auto) 0.0 0.0-0.1 10^3/uL Sodium Level 136 135-145 MMOL/L Potassium Level 3.9 3.6-5.0 MMOL/L Chloride Level 107 98-107 MMOL/L Carbon Dioxide Level 21 21-32 MMOL/L Anion Gap 8 5-14 MMOL/L Blood Urea Nitrogen 8 7-18 MG/DL Creatinine 0.57 L 0.60-1.30 MG/DL Estimat Glomerular Filtration Rate > 60 BUN/Creatinine Ratio 14 Glucose Level 79 70-105 MG/DL Calcium Level 8.9 8.5-10.1 MG/DL Total Bilirubin 0.3 0.1-1.0 MG/DL Aspartate Amino Transf (AST/SGOT) 13 5-34 U/L Alanine Aminotransferase (ALT/SGPT) 9 0-55 U/L Alkaline Phosphatase 45 40-136 U/L Total Protein 6.4 6.4-8.2 GM/DL Albumin 3.6 3.2-4.5 GM/DL My Orders Orders - AMBER MCKEON MD Cbc With Automated Diff (03/18/18 13:13) Ua Culture If Indicated (03/18/18 13:13) Comprehensive Metabolic Panel (03/18/18 13:13) Us Ob Preg Late(14-40wks)81093 (03/18/18 13:13) Vital Signs/I&O 03/18/18 12:52 Temp 98.0 Pulse 81 Resp 16 B/P (MAP) 111/69 (83) Pulse Ox 100 Capillary Refill : Less Than 3 Seconds Blood Pressure Mean: 83 Progress Note : Time: 15:10 Progress Note The patient's ultrasound was unremarkable. There was a single intrauterine which was consistent with her dates. CBC was unremarkable. Urinalysis failed to demonstrate evidence of acute pathology. CMP was unremarkable. Patient was reassured. She was asked follow up with her member services representative Dr. Garcia, on Wednesday. She is asked to return if any problems or questions, Departure Impression Primary Impression: Pelvic pain during in second trimester, antepartum Disposition: HOME, SELF-CARE Condition: Improved Departure-Patient Inst. Decision time for Depature: 15:12 Referrals: ISAIAS GARCIA MD (PCP/Family) Primary Care Physician Patient Instructions: Chronic Pelvic Pain (DC) Add. Discharge Instructions: Close follow-up with Dr. Garcia on Wednesday. Tylenol for pain. Return if any problems. All discharge instructions reviewed with patient and/or family. Voiced understanding. AMBER MCKEON MD Mar 18, 2018 15:11
[2018-03-18 15:14] VITALS: BP 111/69
== END 2018-03-18 15:18 | disposition home or self-care (01) ==
LOC: ER 12:48
DX: O99.89 Other specified diseases and conditions complicating pregnancy, childbirth and the puerperium (principal); R10.2 Pelvic and perineal pain; Z87.59 Personal history of other complications of pregnancy, childbirth and the puerperium; Z3A.18 18 weeks gestation of pregnancy
CPT/HCPCS: 36415; 76805; 80053; 81000; 85025

== ENCOUNTER 2018-07-18 22:08 | Inpatient (IN) | payer MEDICAID ==
[~2018-07-18] VITALS: Ht 154.9 cm; Wt 91.3 kg
[2018-07-18] MEDS ORDERED: D5 LR IV SOLUTION 1,000 ML IV ONE (22:29)
[2018-07-18] MEDS: D5 LR IV SOLUTION 1,000 ML IV SCH (22:45)
[2018-07-18 22:57] LABS: BASOPHILS % (AUTO) 0 % (0-10); EOSINOPHILS # (AUTO) 0.1 10^3/uL (0.0-0.3); EOSINOPHILS % (AUTO) 1 % (0-10); HEMATOCRIT 30 % (35-52); HEMOGLOBIN 10.3 G/DL (11.5-16.0); LYMPHOCYTES # (AUTO) 3.5 X 10^3 (1.0-4.0); LYMPHOCYTES % (AUTO) 27 % (12-44); MEAN CORPUSCULAR HEMOGLOBIN 25 PG (25-34); MEAN CORPUSCULAR HGB CONC 34 G/DL (32-36); MEAN CORPUSCULAR VOLUME 74 FL (80-99); MEAN PLATELET VOLUME 13.4 FL (7.4-10.4); MONOCYTES # (AUTO) 0.8 X 10^3 (0.0-1.0); MONOCYTES % (AUTO) 6 % (0-12); NEUTROPHILS # (AUTO) 8.6 X 10^3 (1.8-7.8); NEUTROPHILS % (AUTO) 66 % (42-75); PLATELET COUNT 180 10^3/uL (130-400); RED BLOOD COUNT 4.07 10^6/uL (4.35-5.85); RED CELL DISTRIBUTION WIDTH 14.9 % (10.0-14.5)
[2018-07-18 23:00] VITALS: BP 120/75
[2018-07-18] MEDS ORDERED: CLINDAMYCIN 900 MG/50 ML IVPB 50 ML IV ONE (23:05)
[2018-07-18] MEDS: CLINDAMYCIN 900 MG/50 ML IVPB 50 ML IV SCH (23:07)
[2018-07-19] VITALS (35 sets, daily range): BP systolic 99–158; BP diastolic 52–98
[2018-07-19] MEDS ORDERED: OXYTOCIN/NORMAL SALINE 500 ML IV ONE (00:10)
[2018-07-19] MEDS ORDERED: LIDOCAINE/EPI 2% 1:200,00 (XYLOCAINE) 10 ML VIAL ONE ×2 (00:10→14:45)
[2018-07-19] MEDS ORDERED: CITRIC ACID/SOB CIT (BICITRA) 30 ML UDC ONE (01:11)
[2018-07-19] MEDS ORDERED: CITRIC ACID/SOB CIT (BICITRA) 30 ML UDC PO ONE (01:30)
--- OUTSIDE RECORDS SUMMARY | 2018-07-19 02:25 | XMS REPORT ---
Author Author JOEY [place] Organization [facility] Address [address] [place] [address] Care Team Providers Care Museum Archivist Name Role Phone [place] COOK Unavailable PROBLEMS Type Condition ICD9-CM Code WWL24-EB Code Onset Dates Condition Status SNOMED Code Problem Mild intermittent asthma without complication J45.20 Active [id number] ALLERGIES Substance Reaction Event Type Date Status Penicillin G Sodium hives Drug Allergy Oct, Active ENCOUNTERS Encounter Location Date Diagnosis [facility] [address] [id number] [place] [address] Oct [facility] [address] [place] [address] [id number] [place] [address] Oct [facility] [address] [facility] [id number] [place] [address] Oct Left acute suppurative otitis media H66.002 ; Mild intermittent asthma with exacerbation J45.21 and Acute laryngitis J04.0 IMMUNIZATIONS No Known Immunizations SOCIAL HISTORY Never Assessed REASON FOR VISIT R Ear pain and pressure, sore throat, cough, elevated temperature. Seen in ER last noc. Migraine last noc on the R side only. ISMA bell PLAN OF CARE Activity Details Follow Up prn Reason: VITAL SIGNS Height 62 in 2017-11-03 Weight 176.8 lbs 2017-11-03 Temperature 98.5 degrees Fahrenheit 2017-11-03 Heart Rate 88 bpm 2017-11-03 Respiratory Rate 18 2017-11-03 Oximetry 99 % 2017-11-03 BMI 32.33 kg/m2 2017-11-03 Blood pressure systolic 122 mmHg 2017-11-03 Blood pressure diastolic 76 mmHg 2017-11-03 MEDICATIONS Medication Instructions Dosage Frequency Start Date End Date Duration Status PredniSONE 10 mg Orally Once a day 4 tablets 24h 5 days Active Erythromycin Ethylsuccinate 400 mg Orally 4 times a day 1 tablet 6h OctNov, 10 days Active Azithromycin 500 mg Orally Once a day 1 tablet 24h 3 Nov, 2017 3 days Active RESULTS No Results PROCEDURES Procedure Date Ordered Result Body Site MEASURE BLOOD OXYGEN LEVEL Nov 03, 2017 INSTRUCTIONS MEDICATIONS ADMINISTERED No Known Medications MEDICAL (GENERAL) HISTORY Type Description Date Medical History Mild intermittent asthma without complication Medical History Mild intermittent asthma without complication Surgical History D&C 2016 Hospitalization History Childbirth 2012,2014,2016
--- OUTSIDE RECORDS SUMMARY | 2018-07-19 02:29 | XMS REPORT | Continuity of Care Document ---
Author Author [facility] Organization [facility] Address Unknown Phone Unavailable Allergies Active Description Code Type Severity Reaction Onset Reported/Identified Relationship to Patient Clinical Status Yes PENICILLIN [id number] BRANDNAME N /A N/A Yes No Known Drug Allergies [id number] Drug Allergy Unknown N/A 03/18/2018 Medications There is no data. Problems Date Dx Coded Attending Type Code Diagnosis Diagnosed By 03/18/2018 AMBER MCKEON MD Ot O99.89 OT DISEASES AND CONDITIONS COMPL PREG/C 03/18/2018 AMBER MCKEON MD Ot R10.2 PELVIC AND PERINEAL PAIN 03/18/2018 AMBER MCKEON MD Ot Z3A.18 18 WEEKS GESTATION OF 03/18/2018 AMBER MCKEON MD Ot Z87.59 PERSONAL HISTORY OF COMP OF PREG, CHLDBR 03/21/2018 AMBER MCKEON MD Ot O99.89 OT DISEASES AND CONDITIONS COMPL PREG/C 03/21/2018 AMBER MCKEON MD Ot R10.2 PELVIC AND PERINEAL PAIN 03/21/2018 AMBER MCKEON MD Ot Z3A.18 18 WEEKS GESTATION OF 03/21/2018 AMBER MCKEON MD, Ot Z87.59 PERSONAL HISTORY OF COMP OF PREG, CHLDBR Procedures There is no data. Results Test [...] Rubella Antibodies, IgG 4.12 index Immune >0.99 Complete urinalysis with reflex to culture - 03/18/18 13:30 Urine color determination YELLOW NRG Urine clarity determination CLEAR NRG Urine pH measurement by test strip 7 5-9 Specific gravity of urine by test strip 1.010 1.016- 1.022 Urine protein assay by test strip, semi-quantitative NEGATIVE NEGATIVE Urine glucose detection by automated test strip NEGATIVE NEGATIVE Erythrocytes detection in urine sediment by light microscopy NEGATIVE NEGATIVE Urine ketones detection by automated test strip NEGATIVE NEGATIVE Urine nitrite detection by test strip NEGATIVE NEGATIVE Urine total bilirubin detection by test strip NEGATIVE NEGATIVE Urine urobilinogen measurement by automated test strip (mass/volume) NORMAL NORMAL Urine leukocyte esterase detection by dipstick 1+ NEGATIVE Automated urine sediment erythrocyte count by microscopy (number/high power field) NONE NRG Automated urine sediment leukocyte count by microscopy (number/high power field ) NONE NRG Bacteria detection in urine sediment by light microscopy NEGATIVE NRG Squamous epithelial cells detection in urine sediment by light microscopy 25-50 NRG Crystals detection in urine sediment by light microscopy NONE NRG Casts detection in urine sediment by light microscopy NONE NRG Mucus detection in urine sediment by light microscopy LARGE NRG Complete urinalysis with reflex to culture NO NRG Complete blood count (CBC) with automated white blood cell (WBC) differential - 03/18/18 13:45 Blood leukocytes automated count (number/volume) 10.5 10*3/uL 4.3-11.0 Blood erythrocytes automated count (number/volume) 4.32 10*6/uL 4.35-5.85 Venous blood hemoglobin measurement (mass/volume) 11.8 g/dL 11.5-16.0 Blood hematocrit (volume fraction) 35 % 35-52 Automated erythrocyte mean corpuscular volume 81 [foz_us] 80-99 Automated erythrocyte mean corpuscular hemoglobin (mass per erythrocyte) 27 pg 25-34 Automated erythrocyte mean corpuscular hemoglobin concentration measurement ( mass/volume) 34 g/dL 32-36 Automated erythrocyte distribution width ratio 14.7 % 10.0-14.5 Automated blood platelet count (count/volume) 214 10*3/uL 130-400 Automated blood platelet mean volume measurement 12.9 [foz_us] 7.4-10.4 Automated blood neutrophils/100 leukocytes 66 % 42-75 Automated blood lymphocytes/100 leukocytes 27 % 12-44 Blood monocytes/100 leukocytes 6 % 0-12 Automated blood eosinophils/100 leukocytes 1 % 0-10 Automated blood basophils/100 leukocytes 0 % 0-10 Blood neutrophils automated count (number/volume) 6.9 10*3 1.8-7.8 Blood lymphocytes automated count (number/volume) 2.8 10*3 1.0-4.0 Blood monocytes automated count (number/volume) 0.6 10*3 0.0-1.0 Automated eosinophil count 0.1 10*3/uL 0.0-0.3 Automated blood basophil count (count/volume) 0.0 10*3/uL 0.0-0.1 Comprehensive metabolic panel - 03/18/18 13:45 Serum or plasma sodium measurement (moles/volume) 136 mmol/L 135-145 Serum or plasma potassium measurement (moles/volume) 3.9 mmol/L 3.6-5.0 Serum or plasma chloride measurement (moles/volume) 107 mmol/L 98-107 Carbon dioxide 21 mmol/L 21-32 Serum or plasma anion gap determination (moles/volume) 8 mmol/L 5-14 Serum or plasma urea nitrogen measurement (mass/volume) 8 mg/dL 7-18 Serum or plasma creatinine measurement (mass/volume) 0.57 mg/dL 0.60-1.30 Serum or plasma urea nitrogen/creatinine mass ratio 14 NRG Serum or plasma creatinine measurement with calculation of estimated glomerular filtration rate > NRG Serum or plasma glucose measurement (mass/volume) 79 mg/dL 70-105 Serum or plasma calcium measurement (mass/volume) 8.9 mg/dL 8.5-10.1 Serum or plasma total bilirubin measurement (mass/volume) 0.3 mg/dL 0.1-1.0 Serum or plasma alkaline phosphatase measurement (enzymatic activity/volume) 45 U/L 40-136 Serum or plasma aspartate aminotransferase measurement (enzymatic activity/ volume) 13 U/L 5-34 Serum or plasma alanine aminotransferase measurement (enzymatic activity/volume ) 9 U/L 0-55 Serum or plasma protein measurement (mass/volume) 6.4 g/dL 6.4-8.2 Serum or plasma albumin measurement (mass/volume) 3.6 g/dL 3.2-4.5 Complete blood count (CBC) with automated white blood cell (WBC) differential - 07/18/18 22:45 Blood leukocytes automated count (number/volume) 13.0 10*3/uL 4.3-11.0 Blood erythrocytes automated count (number/volume) 4.07 10*6/uL 4.35-5.85 Venous blood hemoglobin measurement (mass/volume) 10.3 g/dL 11.5-16.0 Blood hematocrit (volume fraction) 30 % 35-52 Automated erythrocyte mean corpuscular volume 74 [foz_us] 80-99 Automated erythrocyte mean corpuscular hemoglobin (mass per erythrocyte) 25 pg 25-34 Automated erythrocyte mean corpuscular hemoglobin concentration measurement ( mass/volume) 34 g/dL 32-36 Automated erythrocyte distribution width ratio 14.9 % 10.0-14.5 Automated blood platelet count (count/volume) 180 10*3/uL 130-400 Automated blood platelet mean volume measurement 13.4 [foz_us] 7.4-10.4 Automated blood neutrophils/100 leukocytes 66 % 42-75 Automated blood lymphocytes/100 leukocytes 27 % 12-44 Blood monocytes/100 leukocytes 6 % 0-12 Automated blood eosinophils/100 leukocytes 1 % 0-10 Automated blood basophils/100 leukocytes 0 % 0-10 Blood neutrophils automated count (number/volume) 8.6 10*3 1.8-7.8 Blood lymphocytes automated count (number/volume) 3.5 10*3 1.0-4.0 Blood monocytes automated count (number/volume) 0.8 10*3 0.0-1.0 Automated eosinophil count 0.1 10*3/uL 0.0-0.3 Automated blood basophil count (count/volume) 0.0 10*3/uL 0.0-0.1 Blood type T Indirect antibody screen panel - 07/18/18 22:45 ABO+Rh group OP NRG Transfusion band number [id number] NRG Blood group antibody screen NEGATIVE NRG Encounters ACCT No. Visit Date/Time Discharge Status Pt. Type Provider Facility Loc./Unit Complaint [id number] 03/03/2018 17:04:19 03/03/2018 23:59:59 [facility] Outpatient Basim Starks [id number] 02/10/2018 10:48:20 02/10/2018 23:59:59 [facility] Outpatient Basim Starks [id number] 02/03/2018 13:04:00 02/03/2018 23:59:59 [facility] Outpatient Bridget Phillips [id number] 02/01/2018 17:03:36 02/01/2018 23:59:59 [facility] Outpatient Bridget Phillips [id number] 01/04/2018 16:49:40 01/04/2018 23:59:59 [facility] Outpatient Basim Starks [id number] 12/29/2017 13:15:14 12/29/2017 23:59:59 [facility] Outpatient Teresa Cuellar [id number] 07/28/2017 10:33:31 07/28/2017 23:59:59 [facility] Outpatient Sherrill Her [id number] 07/02/2017 13:59:43 07/02/2017 23:59:59 [facility] Outpatient Tran Mccarthy [id number] 06/28/2017 15:06:46 06/28/2017 23:59:59 [facility] Outpatient Sherrill Her [id number] 06/25/2017 14:43:06 06/25/2017 23:59:59 [facility] Outpatient Tran Mccarthy [id number] 12/30/2017 11:06:00 Document Registration [id number] 05/20/2018 10:23:34 Document Registration [id number] 03/03/2018 16:19:13 Document Registration [id number] 02/10/2018 10:35:20 Document Registration [id number] 02/02/2018 14:13:05 Document Registration [id number] 02/02/2018 12:57:06 Document Registration [id number] 07/29/2017 17:07:00 Document Registration [id number] 03/18/2018 12:48:00 03/18/2018 15:18:00 DIS Emergency LINDA BRADY, AMBER Cam [facility] LEFT SIDE PAIN//18 WEEKS PG [id number] 07/18/2018 23:00:00 Document Registration [id number] 12/30/2017 08:13:00 Document Registration [id number] 11/03/2017 15:00:00 11/03/2017 23:59:59 CLS Outpatient SHAHLA LOYA LAC [id number] 12/30/2017 17:06:00 Document Registration [id number] 07/29/2017 17:07:00 Document Registration
[2018-07-19] MEDS: D5 LR IV SOLUTION 1,000 ML IV SCH ×2 (05:12→12:12)
[2018-07-19] MEDS: CLINDAMYCIN 900 MG/50 ML IVPB 50 ML IV SCH ×2 (06:38→14:54)
[2018-07-19] MEDS ORDERED: FLU QUADRIvalent (5+ YOA) 2018-2019 (AFLURIA) 0.5 ML IM ONE (07:15)
[2018-07-19] MEDS ORDERED: ONDANSETRON 4 MG/2 ML (SDV) Z0FRAN ONE (07:39)
--- NOTE | 2018-07-19 07:44 | History & Physical ---
History and Physical Date Seen by Provider: Jul 19, 2018 Time Seen by Provider: 07:41 This patient is a 22-year-old A1 white female with a due date of August 15, 2018 her at just past 36 weeks gestation. She percent with complaint of contractions pain and pressure. Her history includes prior deliveries in the range of 36 weeks gestation. She denied ruptured membranes or bleeding. She did have a GBS culture done at 35 weeks gestation that was positive. She has been started on antibiotics for GBS prophylaxis Allergies are to penicillin which causes hives Medications are vitamins Medical social and surgical histories are per the antepartum record HEENT exam is normal Neck is supple no lymphadenopathy no thyromegaly Abdomen is gravid soft nontender nondistended Extremities show no clubbing or cyanosis. There is no Homans sign. Pelvic exam is pending monitor shows contractions every 2-5-8 minutes patient states that her contractions are quite painful and just like her prior labors Laboratory Tests 07/18/18 22:45 Assessment and plan labor at 36+ weeks gestation in a patient with a GBS positive culture and then a penicillin allergy. Patient is receiving IV clindamycin for GBS prophylaxis. We anticipate a vaginal delivery. Allergies and Home Medications Allergies Coded Allergies: Penicillins (Verified Allergy, Intermediate, HIVES, 07/18/18) Home Medications No Active Prescriptions or Reported Meds Patient Home Medication List Home Medication List Reviewed: Yes Clinical Quality Measures DVT/VTE Risk/Contraindication: Risk Factor Score Per Nursin RFS Level Per Nursing on Admit: 1=Low/No VTE PPX ISAIAS ANG MD Jul 19, 2018 7:44 am
[2018-07-19] MEDS ORDERED: BUTORPHANOL INJ 2 MG/ML (STADOL) VIAL IV ONE (08:45)
[2018-07-19] MEDS ORDERED: ONDANSETRON 4 MG/2 ML (SDV) Z0FRAN IVP ONE (08:45)
[2018-07-19] MEDS ORDERED: OXYTOCIN/NORMAL SALINE 500 ML IV SCH ×2 (09:51→18:28)
[2018-07-19] MEDS ORDERED: BUTORPHANOL INJ 2 MG/ML (STADOL) VIAL IV PRN (11:30)
[2018-07-19] MEDS ORDERED: KETOROLAC 30 MG/ML VIAL ONE (18:21)
[2018-07-19] MEDS ORDERED: TETANUS,DIPTH,PERTUSS P/F (BOOSTRIX) 0.5 ML VIAL IM ONE (18:30)
[2018-07-19] MEDS ORDERED: KETOROLAC 30 MG/ML VIAL IV SCH (18:30)
[2018-07-19] MEDS ORDERED: oxyCODONE/APAP 5/325MG (PERCOCET 5) TABLET PO PRN (18:30)
[2018-07-19] MEDS ORDERED: ONDANSETRON 4 MG/2 ML (SDV) Z0FRAN IVP PRN (18:30)
[2018-07-19] MEDS ORDERED: BENZOCAINE/MENTHOL (DERMOPLAST) 56 ML CAN TP PRN (18:30)
[2018-07-19] MEDS ORDERED: IBUP-1780 PO (20:43)
[2018-07-19] MEDS ORDERED: DOCUSATE SODIUM 100 MG (COLACE) CAP PO SCH (21:00)
--- NOTE | 2018-07-19 23:31 | OPERATIVE REPORT ---
DATE OF SERVICE: 07/19/2018 DELIVERY NOTE DATE OF DELIVERY: 07/19/2018 The patient delivered by operative vaginal delivery at 36+ weeks a viable male with Apgars of 3 and 8 at 1 and 5 minutes respectively, weight 6 lbs. 5 oz., cord blood pH of 7.13. The infant was delivered over an intact perineum from straight OP position with the aid of Shoemaker forceps, which were applied at the +2 to +3 station to shorten the second stage of labor when the mom could not push the baby any further down and the heart rate was dropping down into the 60s with contractions. Shoemaker forceps were applied. Correct placement was confirmed and then with gentle traction primarily to keep the baby from retracting Between pushes. the mom THEN pushed the baby down on to the perineum. The Shoemaker forceps were removed and the mom expelled the baby with her own expulsive effort. The was bulb suctioned on delivery of the head and again on completion of delivery, there was a nuchal cord. Basically, it was over both shoulders, it was just slipped off the shoulders. The was bulb suctioned and stimulated, had generally a good cry, was somewhat lethargic initially from the tight compressed delivery. The umbilical cord when it became pulseless was doubly clamped and the infant passed to nurse Fierro, the pediatric nurse in attendance for delivery. Cord bloods were obtained. The placenta delivered fairly promptly, spontaneously Chanel. It was normal with a 3-vessel cord. The cervix, vagina, rectum and perineum were examined and found intact except for some very small superficial abrasions on the perineal body and the posterior fourchette. The sponge and needle counts were correct on completion of the delivery. The estimated blood loss was around 150 mL. The baby was taken to the full-term nursery for observation and resuscitation. The mom remained in the LDR for recovery. Job ID: [id number] DocumentID: [id number] Dictated Date: 07/19/2018 16:15:16 Case Manager Date: 07/19/2018 23:29:58 Dictated By: ISAIAS ANG MD MTDD
--- NOTE | 2018-07-20 13:22 | Physician Query-Final Dx ---
TONG REID 07/20/18 1322: Final Diagnosis Give Final Diagnosis Please give Final Diagnosis ISAIAS ANG MD 07/20/18 1342: Final Diagnosis Give Final Diagnosis operative vaginal delivery at 36+ weeks gestation TONG REID Jul 20, 2018 13:22 ISAIAS ANG MD Jul 20, 2018 13:42
[2018-07-20] MEDS ORDERED: IBUPROFEN 800 MG (MOTRIN) TAB PO SCH (18:30)
== END 2018-07-19 21:15 | disposition home or self-care (01) | DRG 807 ==
LOC: LDRP 22:08 → WSo 22:08 → LDRP 23:07 → WSo 23:08 → LDRP 07-19 18:15
PROVIDERS: ADMIT Obstetrics & Gynecology; ATTEND Obstetrics & Gynecology
PROC: 10D07Z4 Extraction of Products of Conception, Mid Forceps, Via Natural or Artificial Opening (ICD-10-PCS; principal; 2018-07-19)
DX: O60.14X0 Preterm labor third trimester with preterm delivery third trimester, not applicable or unspecified (principal); O76 Abnormality in fetal heart rate and rhythm complicating labor and delivery; O69.81X0 Labor and delivery complicated by cord around neck, without compression, not applicable or unspecified; O99.820 Streptococcus B carrier state complicating pregnancy; Z3A.36 36 weeks gestation of pregnancy; Z37.0 Single live birth; Z23 Encounter for immunization
CPT/HCPCS: 36415; 85025; 86850; 86900; 86901; 88307; 90715; 99212